=== PATIENT | male | born 1985 | race Caucasian/White ===

== ENCOUNTER 2018-03-04 13:31 | Inpatient (IN) | payer OTHER ==
[2018-03-04 14:55] LABS: ADD MAN DIFF? NO
[2018-03-04] MEDS: ASPIRIN 325 MG TAB PO (14:56)
[2018-03-04] MEDS: NITROGLYCERIN 2% 1 GM OINT PKT TD (14:57)
[2018-03-04 15:03] LABS: BASOPHILS % 0.6 % (0.0-2.0); EOSINOPHILS # 0.2 10^3/ul (0.0-0.5); EOSINOPHILS % 2.4 % (0.0-7.0); HEMATOCRIT 45.2 % (42.0-52.0); HEMOGLOBIN 15.8 g/dl (14.0-18.0); LYMPHOCYTES # 1.8 10^3/ul (0.8-2.9); LYMPHOCYTES % 27.4 % (15.0-51.0); MEAN CORPUSCULAR HEMOGLOBIN 30.4 pg (29.0-33.0); MEAN CORPUSCULAR VOLUME 86.9 fl (82.0-101.0); MEAN PLATELET VOLUME 10.3 fl (7.4-10.4); MONOCYTE # 0.8 10^3/ul (0.3-0.9); MONOCYTES % 12.7 % (0.0-11.0); NEUTROPHIL # 3.8 10^3/ul (1.6-7.5); NEUTROPHILS % 56.4 % (39.0-77.0); PLATELET COUNT 233 10^3/UL (140-415); RED CELL DISTRIBUTION WIDTH 12.9 % (11.5-14.5)
[2018-03-04 15:03] LABS: WHITE BLOOD COUNT 6.6 10^3/ul (4.8-10.8)
[2018-03-04 15:17] LABS: ALANINE AMINOTRANSFERASE 79 IU/L (13-69); ALBUMIN 3.8 g/dl (3.3-4.9); ALBUMIN/GLOBULIN RATIO 1.02; ALKALINE PHOSPHATASE 84 IU/L (42-121); ANION GAP 14 (8-16); ASPARTATE AMINO TRANSFERASE 46 IU/L (15-46); BILIRUBIN,INDIRECT 0.5 mg/dl (0-1.1); BILIRUBIN,TOTAL 0.5 mg/dl (0.2-1.3); BLOOD UREA NITROGEN 17 mg/dl (7-20); CALCIUM 9.2 mg/dl (8.4-10.2); CARBON DIOXIDE 25 mmol/L (21-31); CHLORIDE 106 mmol/L (97-110); CREATININE 1.06 mg/dl (0.61-1.24); GLUCOSE 105 mg/dl (70-220); POTASSIUM 3.6 mmol/L (3.5-5.1); SODIUM 141 mmol/L (135-144); TOTAL PROTEIN 7.5 g/dl (6.1-8.1)
[2018-03-04 15:20] LABS: PARTIAL THROMBOPLASTIN TIME 25.4 Sec (23.0-35.0); PROTIME 12.2 Sec (11.9-14.9)
[2018-03-04 15:28] LABS: TROPONIN-I < 0.012 ng/ml (0.000-0.120)
[2018-03-04] MEDS ORDERED: ACETAMINOPHEN 325 MG TAB PO (16:30)
[2018-03-04] MEDS ORDERED: ONDANSETRON 4 MG INJ IV ×2 (16:30→18:00)
[2018-03-04] MEDS ORDERED: MAGNESIUM HYDROXIDE 30ML CUP PO (18:00)
[2018-03-04] MEDS ORDERED: DOCUSATE SODIUM 100 MG CAP PO (18:00)
[2018-03-04] MEDS ORDERED: morphine 2 MG INJ IV (18:00)
[2018-03-04] MEDS ORDERED: NACL 0.9% 3 ML SYG IV (18:00)
[2018-03-04] MEDS ORDERED: BISACODYL 10 MG SUPP PR (18:00)
[2018-03-04] MEDS: SOD CHLORIDE 0.9% 1,000 ML IV (20:49)
[2018-03-04] MEDS: ATORVASTATIN 40 MG TAB PO (20:49)
[2018-03-04] MEDS: METOPROLOL 25 MG TAB PO (20:50)
[2018-03-04] MEDS: ACETAMINOPHEN 325 MG TAB PO (21:01)
[2018-03-04] MEDS: GUAIFENESIN LA 600 MG TABSR PO (21:02)
[2018-03-04 22:23] LABS: CREATINE KINASE 105 IU/L (23-200)
[2018-03-04 22:36] LABS: CK INDEX 0.5; CK-MB 0.52 ng/ml (0.0-2.4); TROPONIN-I < 0.012 ng/ml (0.000-0.120)
[2018-03-05] MEDS: NITROGLYCERIN (SL) 0.4 MG TAB SL ×2 (01:09→01:16)
[2018-03-05 03:56] LABS: ADD MAN DIFF? NO
[2018-03-05] MEDS: SOD CHLORIDE 0.9% 100 ML (03:59)
[2018-03-05] MEDS: IOHEXOL 300MG/ML 150 ML BTL (03:59)
[2018-03-05 04:16] LABS: CHOLESTEROL 196 mg/dl (100-200)
[2018-03-05 04:16] LABS: CHOL/HDL RATIO 6.5 RATIO; HDL CHOLESTEROL 30 mg/dl (28-63); LDL CHOLESTEROL,CALCULATED 122 mg/dl; TRIGLYCERIDES 221 mg/dl (0-149)
[2018-03-05 04:18] LABS: ALANINE AMINOTRANSFERASE 75 IU/L (13-69); ALBUMIN 3.9 g/dl (3.3-4.9); ALKALINE PHOSPHATASE 69 IU/L (42-121); ANION GAP 12 (8-16); ASPARTATE AMINO TRANSFERASE 38 IU/L (15-46); BILIRUBIN,INDIRECT 0.7 mg/dl (0-1.1); BILIRUBIN,TOTAL 0.7 mg/dl (0.2-1.3); BLOOD UREA NITROGEN 16 mg/dl (7-20); CALCIUM 8.7 mg/dl (8.4-10.2); CARBON DIOXIDE 25 mmol/L (21-31); CHLORIDE 110 mmol/L (97-110); CREATINE KINASE 102 IU/L (23-200); CREATININE 0.89 mg/dl (0.61-1.24); GLUCOSE 109 mg/dl (70-220); POTASSIUM 4.2 mmol/L (3.5-5.1); SODIUM 143 mmol/L (135-144); TOTAL PROTEIN 6.9 g/dl (6.1-8.1)
[2018-03-05 04:19] LABS: BASOPHILS % 0.5 % (0.0-2.0); EOSINOPHILS # 0.2 10^3/ul (0.0-0.5); EOSINOPHILS % 2.8 % (0.0-7.0); HEMATOCRIT 42.7 % (42.0-52.0); HEMOGLOBIN 14.6 g/dl (14.0-18.0); LYMPHOCYTES # 2.3 10^3/ul (0.8-2.9); LYMPHOCYTES % 27.4 % (15.0-51.0); MEAN CORPUSCULAR HEMOGLOBIN 29.9 pg (29.0-33.0); MEAN CORPUSCULAR HGB CONC 34.2 g/dl (32.0-37.0); MEAN CORPUSCULAR VOLUME 87.3 fl (82.0-101.0); MEAN PLATELET VOLUME 10.6 fl (7.4-10.4); MONOCYTE # 0.9 10^3/ul (0.3-0.9); MONOCYTES % 11.1 % (0.0-11.0); NEUTROPHIL # 4.8 10^3/ul (1.6-7.5); NEUTROPHILS % 57.8 % (39.0-77.0); PLATELET COUNT 208 10^3/UL (140-415); RED BLOOD COUNT 4.89 10^6/ul (4.70-6.10); RED CELL DISTRIBUTION WIDTH 13.2 % (11.5-14.5)
[2018-03-05 04:19] LABS: WHITE BLOOD COUNT 8.4 10^3/ul (4.8-10.8)
[2018-03-05 04:26] LABS: CK INDEX 0.5; CK-MB 0.49 ng/ml (0.0-2.4)
[2018-03-05 04:31] LABS: TROPONIN-I < 0.012 ng/ml (0.000-0.120)
[2018-03-05] MEDS: PANTOPRAZOLE (EC) 40 MG TAB PO (05:54)
[2018-03-05 07:01] LABS: HEMOGLOBIN A1C 5.2 % (0-5.9)
[2018-03-05] MEDS: GUAIFENESIN LA 600 MG TABSR PO (08:46)
[2018-03-05] MEDS: ASPIRIN 81 MG TAB PO (08:53)
[2018-03-05] MEDS: ENOXAPARIN 40 MG/0.4 ML SYG SC (08:54)
[2018-03-05] MEDS: METOPROLOL 25 MG TAB PO (08:54)
[2018-03-05] MEDS: REGADENOSON 0.4 MG/5 ML SYG (11:22)
== END 2018-03-05 18:33 | disposition home or self-care (01) | DRG 313 ==
LOC: E/R 13:31 → 6WM 16:16
DX: R07.89 Other chest pain (principal); I10 Essential (primary) hypertension; R61 Generalized hyperhidrosis; R06.00 Dyspnea, unspecified; R00.2 Palpitations
CPT/HCPCS: 36415; 71045; 71275; 78452; 80053; 80061; 82550; 82553; 83036; 83735; 84443; 84484; 85025; 85610; 85730; 93005; 93017; 93306; 99285-25